=== PATIENT | female | born 1980 | race Caucasian/White ===

== ENCOUNTER 2021-04-11 08:20 | Outpatient (REF) | payer MEDICARE, MEDICAID, SELFPAY ==
[2021-04-11 11:17] LABS: MANUAL DIFF FLAG NO
[2021-04-11 11:28] LABS: Basophils Absolute Auto 0.1 X10*3/uL (0.0-0.2); Basophils Percent Auto 0.5 % (0-2); Eosinophils Absolute Auto 0.3 X10*3/uL (0.0-0.4); Eosinophils Percent Auto 2.9 % (0-4); Hematocrit 41.6 % (37.0-47.0); Hemoglobin 13.9 g/dl (12.0-16.0); Imm Gran Abs Auto 0.03 X10*3/uL (0.00-0.03); Imm Gran Pct Auto 0.3 % (0.0-0.4); Lymphocytes Absolute Auto 2.6 X10*3/uL (1.2-4.9); Lymphocytes Percent Auto 25.3 % (20-40); Mean Corpuscular HGB Conc 33.4 g/dl (31.0-35.0); Mean Corpuscular Hemoglobin 29.9 pg (27.0-33.0); Mean Corpuscular Volume 89.5 fL (80.0-98.0); Mean Platelet Volume 11.4 fL (9.4-12.3); Monocytes Absolute Auto 0.7 X10*3/uL (0.1-1.2); Monocytes Percent Auto 6.6 % (2-11); Neutrophils Absolute Auto 6.5 x10*3/uL (2.0-8.3); Neutrophils Percent Auto 64.4 % (45-73); Platelet Count 300 X10*3/uL (160-400); Red Blood Count 4.65 X10*6/uL (4.20-5.50); Red Cell Distribution Width 12.5 % (11.0-16.0); White Blood Count 10.1 X10*3/uL (4.8-10.8)
[2021-04-11 11:45] LABS: Alanine Aminotransferase 18 U/L (0-31); Albumin Level 4.4 g/dL (3.5-5.0); Alkaline Phosphatase 90 U/L (39-117); Anion Gap 13 (12-20); Aspartate Amino Transferase 19 U/L (5-31); Bilirubin Total 0.5 mg/dL (0.0-1.0); Blood Urea Nitrogen 8 mg/dL (9-16); Calcium 9.5 mg/dL (8.4-10.2); Carbon Dioxide 29 mmol/L (22-29); Chloride 104 mmol/L (96-108); Cholesterol 229 mg/dL; Estimated Glomerular Filt Rate > 60; Glucose Fasting 97 mg/dL (60-99); HDL Cholesterol 55 mg/dL; LDL Cholesterol Calculated 146 mg/dl; Potassium 3.9 mmol/L (3.3-5.1); Sodium 142 mmol/L (135-145); Total Protein 7.1 g/dL (6.5-8.0); Triglycerides 141 mg/dL
[2021-04-11 11:51] LABS: Appearance Urine CLOUDY; Glucose Urine UA NEG (NEG); Leukocyte Esterase Urine NEG (NEG); Nitrite Urine NEG (NEG); PH 6.5 (5.0-8.0); UACC Culture Trigger NO; Urine Blood 3+ (NEG); Urine Ketones NEG (NEG); Urine Protein TRACE MG/DL (NEG-TRACE)
[2021-04-11 11:54] LABS: Color Urine RED
[2021-04-11 12:01] LABS: RBC Urine TNTC /HPF (0); Squamous Epithelial Cell Urine 2+ /LPF; WBC Urine 0 /HPF (0-4)
[2021-04-11 12:07] LABS: TSH reflex Free T4 2.45 uIU/mL (0.32-4.0)
== END 2021-04-11 08:21 | disposition home or self-care (01) ==
LOC: HO.HMGCLDS 08:20
PROVIDERS: PCP Nurse Practitioner Family; Visit Provider Nurse Practitioner Family
DX: I10 Essential (primary) hypertension (principal); E78.5 Hyperlipidemia, unspecified
CPT/HCPCS: 36415; 80053; 80061; 81001; 84443; 85025

== ENCOUNTER 2021-05-03 08:58 | Outpatient (REF) | payer MEDICARE, MEDICAID, SELFPAY ==
--- NOTE | ~2021-05-03 | US_ITS ---
EXAMINATION: US ABDOMEN LIMITED CLINICAL INFORMATION: Soft tissue disorder. Anterior abdominal wall COMPARISON: None TECHNIQUE: Real-time imaging of the right and left lateral abdominal areas. FINDINGS: Area of interest in the anterior abdominal wall scanned, revealing no gross abnormalities, no loculated the fluid, no ultrasound evidence of a mass. No hernia found. No adenopathy. US/US abdomen limited IMPRESSION: Unremarkable ultrasound. If patient remain symptomatic may consider correlation with follow-up contrast enhanced cross-sectional imaging CT scan or MRI..
== END 2021-05-03 08:59 | disposition home or self-care (01) ==
LOC: HO.HMGCX 08:58
PROVIDERS: PCP Nurse Practitioner Family; Visit Provider Nurse Practitioner Family
DX: M79.9 Soft tissue disorder, unspecified (principal)
CPT/HCPCS: 76705

== ENCOUNTER 2021-06-22 09:02 | Outpatient (REF) | payer MEDICARE, MEDICAID, SELFPAY ==
[2021-06-22 11:31] LABS: Appearance Urine HAZY; Color Urine YELLOW; Glucose Urine UA NEG (NEG); Leukocyte Esterase Urine NEG (NEG); Nitrite Urine NEG (NEG); Specific Gravity - Urine >= 1.030 (1.005-1.025); UACC Culture Trigger NO; Urine Blood 1+ (NEG); Urine Ketones NEG (NEG); Urine Protein NEG (NEG-TRACE)
[2021-06-22 11:35] LABS: Cholesterol 132 mg/dL; HDL Cholesterol 47 mg/dL; LDL Cholesterol Calculated 60 mg/dl; Triglycerides 125 mg/dL
[2021-06-22 11:40] LABS: Bacteria Urine 4+ /LPF; Calcium Oxalate Crystals Urine TRACE /LPF; Squamous Epithelial Cell Urine 3+ /LPF
== END 2021-06-22 09:03 | disposition home or self-care (01) ==
LOC: HO.HMGCLDS 09:02
PROVIDERS: Visit Provider Nurse Practitioner Family
DX: E78.5 Hyperlipidemia, unspecified (principal); I10 Essential (primary) hypertension
CPT/HCPCS: 36415; 80061; 81001

== ENCOUNTER 2021-06-25 10:51 | Outpatient (REF) | payer MEDICARE, MEDICAID, SELFPAY ==
--- NOTE | ~2021-06-25 | CT_ITS ---
EXAMINATION: CT ABDOMEN AND PELVIS WITH CONTRAST CLINICAL INFORMATION: Pelvic and perineal pain. COMPARISON: No similar priors. TECHNIQUE: Multidetector volumetric images were obtained from the superior aspect of the liver through the pubic symphysis following administration 85 mL of Omnipaque 350 intravenous contrast. Sagittal and coronal reformatted images were obtained on the technologist's workstation. Oral contrast: No. This CT examination was performed using dose optimization techniques as appropriate, variously including the following: *Automated exposure control *Adjustment of mA and/or kV according to patient size (this includes techniques or standardized protocols for targeted exams where dose is matched to indication/reason for exam; i.e. extremities or head) *Use of iterative reconstruction technique DLP: 549 mGy-cm FINDINGS: LUNG BASES: The visualized lung bases are unremarkable. LIVER, GALLBLADDER, AND BILIARY TREE: There are a few too small to characterize liver lesions, for instance in the left hepatic lobe (3:12) and right hepatic lobe (3:18) which statistically are likely to represent simple cysts. There is focal fatty infiltration adjacent to the falciform ligament. Otherwise, the liver is normal in size, shape and attenuation. Normal gallbladder. No biliary ductal dilatation. PANCREAS: No focal abnormalities. The main pancreatic duct is nondilated. No peripancreatic free fluid nor fat stranding. SPLEEN: Unremarkable. ADRENAL GLANDS: Unremarkable. KIDNEYS AND URETERS: The kidneys are normal in size, shape, and attenuation. No hydronephrosis, hydroureter, or calculi seen. No perinephric stranding. BLADDER: Unremarkable. GASTROINTESTINAL TRACT: The stomach and the small bowel are nondilated. Normal appendix. Mild diverticulosis. No active inflammatory bowel changes or evidence of bowel obstruction. ABDOMINAL WALL: No significant hernia is appreciated. LYMPH NODES: No lymphadenopathy by size criteria. VASCULAR: Atherosclerotic disease. The abdominal aorta is of normal diameter. PELVIC VISCERA: There is an approximately 3.2 cm anterior myometrial mass which statistically is likely to represent an intramural fibroid. There is a 1.7 cm corpus luteal cyst in the right ovary. Trace amount of free fluid layering the pelvis is likely physiologic. OSSEOUS STRUCTURES: No acute or aggressive osseous abnormalities. Thoracolumbar spondylosis. CT/CT abdomen pelvis w con IMPRESSION: Mild diverticulosis without evidence of acute diverticulitis. Uterine fibroid.
[2021-06-25] MEDS: iohexoL 350 MG/ML 100 ML INFUS..BTL IV (11:28)
== END 2021-06-25 10:52 | disposition home or self-care (01) ==
LOC: HO.CT 10:51
PROVIDERS: PCP Nurse Practitioner Family; Visit Provider Nurse Practitioner Family
DX: R10.2 Pelvic and perineal pain (principal); R10.31 Right lower quadrant pain
CPT/HCPCS: 74177; Q9967

== ENCOUNTER 2021-08-28 13:56 | Outpatient (REF) | payer MEDICARE, MEDICAID, SELFPAY ==
--- NOTE | ~2021-08-28 | US_ITS ---
EXAMINATION: US THYROID CLINICAL INFORMATION: Nontoxic single thyroid nodule. COMPARISON: None TECHNIQUE: Linear transducer grayscale and color Doppler examination with attention to the region of the thyroid. FINDINGS: SIZE: Measurements of the thyroid lobes and nodules are given in sagittal, anteroposterior and transverse dimensions respectively. Right Thyroid Lobe: 4.7 x 1.6 x 1.1 cm, volume 4.4 mL. Parenchyma: The gland echotexture is homogeneous. Thyroid vascularity is normal. Left Thyroid Lobe: 4.2 x 0.96 x 1.3 cm, volume 2.8 mL. Parenchyma: The gland echotexture is homogeneous. Thyroid vascularity is normal. Isthmus: 0.29 cm in maximum AP dimension. Estimated total number of nodules greater than or equal to 1 cm: 0. Technical Support Agent nodules are described as follows: 1. Location: Right superior. Size: 0.79 x 0.61 x 0.70 cm, volume 0.18 mL. Nodule characteristics: Composition: Cystic(0). ACR TI-RADS total points: 0 ACR TI-RADS category: 1 2. Location: Left mid. Size: 0.91 x 0.46 x 0.80 cm, volume 0.17 mL. Nodule characteristics: Composition: Mixed cystic and solid (1). Echogenicity: Very hypoechoic (3). Shape: Not taller than wide (0). Margins: Smooth (0). Echogenic Foci: None (0). ACR TI-RADS total points: 4 ACR TI-RADS category: 4 NODES: No lymphadenopathy is seen in the tissue surrounding the thyroid gland. US/US thyroid IMPRESSION: Small bilateral thyroid nodules. These do not meet TI RADS criteria for fine-needle aspiration or ultrasound follow-up. ACR TI-RADS RECOMMENDATION REFERENCE: Ultrasound-guided fine-needle aspiration, followup ultrasound, no further follow up. * TR1 (0 point) and TR 2 (2 points): No FNA or follow up * TR3 (3 points): FNA if more than or equal to 2.5 cm in maximum dimension, followup ultrasound in 1, 3 and 5 years if 1.5 to 2.4 cm in maximum dimension. * TR4 (4-6 points): FNA if more than or equal to 1.5 cm in maximum dimension, followup ultrasound in 1, 2, 3 and 5 years if 1 to 1.4 cm in maximum dimension. * TR5 (more than or equal to 7 points): FNA if more than or equal to 1 cm in maximum dimension, followup ultrasound every year for 5 years if 0.5 to 0.9 cm in maximum dimension. * TR3, TR4 or TR5 nodules that are below the size threshold for follow up receive no follow up.
== END 2021-08-28 13:57 | disposition home or self-care (01) ==
LOC: HO.HMGCX 13:56
PROVIDERS: Visit Provider Nurse Practitioner Family
DX: E04.1 Nontoxic single thyroid nodule (principal)
CPT/HCPCS: 76536

== ENCOUNTER → 2021-09-25 13:44 | Outpatient (REF) | payer MEDICARE, MEDICAID, SELFPAY ==
--- NOTE | 2021-09-25 13:52 | CA_ITS ---
Transthoracic Echocardiogram Patient (Last, First, Middle): Janeth Rachel, Gender: Female Date of : 1980 Age: 40 Procedure Date: 09/25/2021 Procedure Type: Transthoracic Echocardiogram Location: OP Height: 165.1 cm Weight: 91.17 kg BSA: 1.98 m2 Heart Rate: bpm BP: 130 / 80 mmHg Marketing Database Coordinator: SB Referring MD: Andrew Canada [facility] [employer] Chief: Deshawn Soto MD Symptoms: R01.1 - Cardiac murmur, unspecified Study Quality: Adequate ECG Rhythm: Sinus Conclusions: - Essentially normal study Findings Left Ventricle Normal left ventricular size, thickness, and systolic function. The visually estimated ejection fraction is between 60-65%. Spectral Doppler is indicative of a normal filling pattern. Right Ventricle Normal right ventricular cavity size and systolic function. Atria Both atria are normal in size. There is no evidence of interatrial shunt. Aortic Valve Normal aortic valve structure and function. There is no aortic valve stenosis. There is no aortic valve regurgitation. Mitral Valve Normal mitral valve structure and function. There is trace mitral valve regurgitation. There is no mitral valve stenosis. Pulmonic Valve The pulmonic valve is likely normal. Tricuspid Valve Normal tricuspid valve structure. Tricuspid regurgitation envelope is inadequate for calculation of right ventricular systolic pressure. Great Vessels All visible segments of the aorta are normal in size. The pulmonary artery was not well visualized. Venous The inferior vena cava is normal in size and collapses greater than 50% with inspiration. Pericardium/Pleural There is no evidence of pericardial effusion. Prior Study Comparison No prior study available for comparison. Measurements 2D Linear Measurements IVSd: 0.53 0.6-0.9/0.6-1.0 cm LVIDd: 5.62 3.9-5.3/4.2-5.9 cm LVIDd Index: 2.84 2.4-3.2/2.2-3.1 cm/m2 LVIDs: 3.92 2.0-3.6 cm LVPWd: 0.60 0.7-1.1 cm LA Diam: 3.80 2.7-3.8/3.0-4.0 cm LAIDs Index: 1.92 1.5-2.3 cm/m2 LV Mass: 135.96 67-162/88-224 g LV Mass Index: 68.66 43-95/49-115 g/m2 LVOT Diam: 1.90 3.0+(-)1.3 cm Mitral Valve MV Pk E: 0.92 MV PK A: 0.88 MV Decel Time: 187.00 E/A: 1.00 E'Lateral: 14.00 E'Medial: 7.62 E/E' Med: 12.10 E/E' Lat: 6.60 PHT: 55.00 MVA PHT: 4.00 Decel [place]: 4.91 Aortic Valve AoV Pk August: 1.36 AoV Mn August: 1.02 AoV VTI: 0.27 AoV Pk Grad: 7.00 Aov Mn Grad: 4.00 ADELSO Cont.VTI: 2.64 LVOT LVOT Pk August: 1.26 LVOT Mn August: 0.90 LVOT VTI: 0.25 LVOT Pk Grad: 6.00 LVOT Mn Grad: 4.00 LVOT Diam: 1.90 LVOT Area: 2.84 Diastolic Function MV Pk E: 0.92 MV Pk A: 0.88 E/A: 1.00 E'Medial: 7.62 E/E' Med: 12.10 E' Laterial: 14.00 E/E' Lat: 6.60 Right Ventricle TAPSE (mm): 20.30 TVS' August: 12.70 Tricuspid Valve RA Press: 3.00 Great Vessels Aorta Sinus of Valsalva: 2.60 2.0-3.[address] [place]: 2.34 1.7-3.4 cm Ao Asc: 2.80 2.1-3.4 cm Pulmonary Valve PV Pk August: 1.13 Peak PV Grad: 5.00 Updated in Other Vendor System with Status of Final Deshawn Soto MD electronically signed on 09/25/2021 6:16:34 PM with status of Final
== END ==
LOC: HO.CARD 13:44
PROVIDERS: Visit Provider Nurse Practitioner Family
DX: R01.1 Cardiac murmur, unspecified (principal)
CPT/HCPCS: 93306

== ENCOUNTER 2023-06-03 12:58 | Outpatient (AMB) | payer MEDICARE, MEDICAID, SELFPAY ==
--- NOTE | 2023-06-03 13:09 | MHC.PC.OV ---
Vital Signs 06/03/23 13:12 Height 5 ft 6 in Weight 205 lb BMI 33.1 BP 120/76 Blood Pressure Location Lt brachial Position Sitting Pulse 79 Pulse Source Pulse Oximeter Pulse Oximetry (%) 98 Oxygen Delivery Method Room Air Intake Visit Reasons: HTN Follow up on meds Intake Note: Patient here for HTN/Choles F/U. Allergies PYRAZOLE Allergy (Unknown, Uncoded 06/03/23 13:13) Unknown Salicylates Allergy (Unknown, Uncoded 06/03/23 13:13) Unknown Medication List - Last Reconciled 06/03/23 by Andrew Canada, ACCOUNT CONSULTANT- albuterol sulfate 90 mcg/actuation (Ventolin HFA) 1 inh inhalation QID PRN 30 days atorvastatin 10 mg PO BEDTIME 90 days diphenhydramine HCl 50 mg PO BEDTIME methadone 20 mg PO DAILY multivitamin 1 tab PO DAILY Tobacco use date assessed: 06/03/23 Dental Screening Dental Screen Date: 06/03/23 Did you have a dental visit in the last 12 months?: No Did you have a dental problem in the last 6 months where you did not have access to dental care?: No Was dental information given to patient?: Patient has dentist HPI HTN Follow up on meds HPI Details HTN: Blood pressure is stable. Pt is not currently on any meds for blood pressure. Denies chest pain, shortness of breath, headache, dizziness, and blurred vision. Will order labs. reports doing well overal [facility] Social History Housing: [place] Patient Tobacco Use Status: Former Tobacco user Years Smoked: 2 years ago e-Cigarette/Vaping Use: Currently Using Second Hand Smoke Exposure: No service: No Current occupational status: disabled Cognitive needs: No Hearing needs: No Vision needs: No Questionnaire PHQ-9 Over the last 2 weeks, how often have you been bothered by any of the following problems? 1. Little interest or pleasure in doing things: not at all 2. Feeling down, depressed, or hopeless: not at all 3. Trouble falling or staying asleep, or sleeping too much: several days 4. Feeling tired or having little energy: not at all 5. Poor appetite or overeating: not at all 6. Feeling bad about yourself - or that you are a failure or have let yourself or your family down: not at all 7. Trouble concentrating on things, such as reading the newspaper or watching television: not at all 8. Moving or speaking so slowly that other people could have noticed. Or the opposite - being so fidgety or restless that you have been moving around a lot more than usual: not at all 9. Thoughts that you would be better off or of hurting yourself in some way: not at all Total score: 1 Depression Screening Interpretation: Negative Depression Screening Done: Yes 43654 - PHQ-9 Billing: Yes Source: Developed by Drs. Kumar Gusman, Estefania Aragon, Hudson Ha and colleagues, with an educational bessie from [employer]. Thrive Questionnaire Date Thrive assessed: 06/03/23 I am a: Patient What is your living situation today?: I have a steady place to live Within the past 12 months, did the food you bought not last and you didn't have the money to get more?: Never true Within the past 12 months, did you worry whether your food would run out before you got money to buy more?: Never true Do you have trouble paying for medicines?: No Do you have trouble getting transportation to medical appointments?: No Do you have trouble paying your heating and electricity bill?: No Do you have trouble taking care of your child, family member or friend?: No Do you have trouble with day-to-day activities such as bathing, preparing meals, shopping, managing finances, etc.?: No Are you currently unemployed and looking for a job?: No Are you interested in more education?: No AUDIT C Alcohol Use Questionnaire (AUDIT-C) 1. How often do you have a drink containing alcohol?: Never 3. How often do you have six or more drinks on one occasion?: Never Total Score: 0 Score Reviewed/Action Taken: No MATT-7 AMB Questionnaire MATT-7 Date MATT - 7 assessed: 06/03/23 Feeling nervous, anxious, or on edge: 0 = Not at all Not being able to stop or control worryin = Not at all Worrying too much about different things: 0 = Not at all Trouble relaxin = Not at all Being so restless that it is hard to sit still: 0 = Not at all Becoming easily annoyed or irritable: 0 = Not at all Feeling afraid as if something awful might happen: 0 = Not at all Total MATT-7 score (0-4 normal; 5-9 mild; 10-14 moderate; 15-21 severe): 0 Source: Developed by Drs. Kumar Gusman, Estefania Aragon, Hudson Ha and colleagues, with an educational bessie from [employer]. MATT-7 Assessment Billing MATT-7 Assessment Tool: MATT-7 Assessment 55458 Review of Systems Const Reports as per HPI Physical exam (Primary Care) Vital Signs: Last Vital Signs Pulse 79 06/03/23 13:12 BP 120/76 06/03/23 13:12 Pulse Ox 98 06/03/23 13:12 Oxygen Delivery Method Room Air 06/03/23 13:12 BMI result Body Mass Index 33.1 Tobacco/Smoking Status: Tobacco use Status Tobacco use date assessed 06/03/23 06/03/23 13:18 Patient Tobacco Use Status Former Tobacco user 06/03/23 13:18 e-Cigarette/Vaping Use Currently Using 06/03/23 13:18 PHQ-9: PHQ-9 Score PHQ-9: Total score 1 06/03/23 13:22 Depression Screening Interpretation: Negative Thrive Assessment: Date of Thrive Assessment Date Thrive assessed 06/03/23 06/03/23 13:18 Const General: cooperative Nutritional Appearance: obese Orientation/consciousness: patient oriented x3 Resp Effort & Inspection: normal respiratory effort Auscultation: clear to auscultation bilaterally Cardio Rate: regular rate Rhythm: regular rhythm Heart sounds: S1 normal heart sound present and S2 normal heart sound present Neuro General: patient oriented x3 Extrem Right lower extremity: no edema Left lower extremity: no edema Psych Appearance: grossly normal Mental Status: mental status grossly normal Speech and movement: Normal speech and movement present Affect: normal affect Attitude: cooperative Thought process: Normal thought process present Thought content: Normal thought content present Insight: Good insight present (Psych) Judgement: Good judgement present (Psych) Assessment and Plan Assessment & Plan (1) HTN (hypertension): Code(s): I10 - Essential (primary) hypertension Plan: Labs ordered (2) Vitamin D deficiency: Code(s): E55.9 - Vitamin D deficiency, unspecified Plan The patient agreed to the use of a director biomedical engineering for this encounter. Scribed for OSITO Coello by Paradise Paulino, director biomedical engineering, on 06/03/2023 at 13:25 EST. Orders: Orders Complete Blood Count Auto Diff Today I10 - Essential (primary) hypertension UA CC w/rflx Micro + Cult Today I10 - Essential (primary) hypertension Comprehensive [place]. Panel Fast Today I10 - Essential (primary) hypertension TSH reflex Free T4 Today I10 - Essential (primary) hypertension Lipid Panel Today I10 - Essential (primary) hypertension Vitamin D 25-OH Total Today E55.9 - Vitamin D deficiency, unspecified Medications: New multivitamin 1 tab PO DAILY 90 tabs 3RF Coding Level of Care Code Est Pt Level 3 (72406) Diagnoses HTN (hypertension) I10 Vitamin D deficiency E55.9 Additional Codes MATT-7 Assessment Billing - MATT-7 Assessment Tool: MATT-7 Assessment 92275 ([id number])
[2023-06-03 13:12] VITALS: BP 120/76; PULSE 79; O2SAT 98; BMI 33.1
== END 2023-06-03 15:11 | disposition home or self-care (01) ==
PROVIDERS: PCP Nurse Practitioner Family; Visit Provider Nurse Practitioner Family
DX: I10 Essential (primary) hypertension (principal); E55.9 Vitamin D deficiency, unspecified
CPT/HCPCS: 99213

== ENCOUNTER 2024-02-27 07:27 | Outpatient (REF) | payer MEDICARE, MEDICAID, SELFPAY ==
[2024-02-27 10:15] LABS: Appearance Urine Cloudy; Color Urine Yellow; Glucose Urine UA Negative (Negative); Leukocyte Esterase Urine Negative (Negative); Nitrite Urine Negative (Negative); Specific Gravity - Urine 1.015 (1.005-1.025); Urine Blood Negative (Negative); Urine Ketones Negative (Negative); Urine Protein Negative (Neg-Trace)
[2024-02-27 10:15] LABS: MANUAL DIFF FLAG NO
[2024-02-27 10:25] LABS: Basophils Percent Auto 0.5 % (0-2); Eosinophils Absolute Auto 0.2 X10*3/uL (0.0-0.4); Eosinophils Percent Auto 2.3 % (0-4); Hemoglobin 14.5 g/dl (12.0-16.0); Imm Gran Abs Auto 0.01 X10*3/uL (0.00-0.03); Imm Gran Pct Auto 0.1 % (0.0-0.4); Lymphocytes Absolute Auto 2.5 X10*3/uL (1.2-4.9); Lymphocytes Percent Auto 28.8 % (20-40); Mean Corpuscular HGB Conc 34.5 g/dl (31.0-35.0); Mean Corpuscular Hemoglobin 30.4 pg (27.0-33.0); Mean Corpuscular Volume 88.1 fL (80.0-98.0); Mean Platelet Volume 11.6 fL (9.4-12.3); Monocytes Absolute Auto 0.7 X10*3/uL (0.1-1.2); Neutrophils Absolute Auto 5.3 x10*3/uL (2.0-8.3); Neutrophils Percent Auto 60.3 % (45-73); Platelet Count 277 X10*3/uL (160-400); Red Blood Count 4.77 X10*6/uL (4.20-5.50); Red Cell Distribution Width 12.2 % (11.0-16.0); White Blood Count 8.7 X10*3/uL (4.8-10.8)
[2024-02-27 10:51] LABS: Alanine Aminotransferase 15 U/L (0-31); Alkaline Phosphatase 73 U/L (39-117); Anion Gap 10 (12-20); Aspartate Amino Transferase 18 U/L (5-31); Bilirubin Total 0.7 mg/dL (0.0-1.0); Blood Urea Nitrogen 10 mg/dL (9-16); Calcium 9.5 mg/dL (8.4-10.2); Carbon Dioxide 28 mmol/L (22-29); Chloride 107 mmol/L (96-108); Cholesterol 121 mg/dL (<200); Estimated Glomerular Filt Rate > 60; Glucose Fasting 95 mg/dL (60-99); HDL Cholesterol 51 mg/dL (>40); LDL Cholesterol Calculated 56 mg/dL (<100); Sodium 141 mmol/L (135-145); Total Protein 6.5 g/dL (6.5-8.0); Triglycerides 73 mg/dL (<150)
== END 2024-02-27 07:28 | disposition home or self-care (01) ==
LOC: HO.HMGCLDS 07:27
PROVIDERS: PCP Nurse Practitioner Family; Visit Provider Nurse Practitioner Family
DX: I10 Essential (primary) hypertension (principal); E55.9 Vitamin D deficiency, unspecified
CPT/HCPCS: 36415; 80053; 80061; 81003; 82306; 84443; 85025

== ENCOUNTER 2024-09-20 15:11 | Outpatient (AMB) | payer MEDICARE, MEDICAID, SELFPAY ==
[2024-09-20 15:17] VITALS: BP 120/76; PULSE 69; O2SAT 98; BMI 29.7
--- NOTE | 2024-09-20 15:17 | MHC.PC.OV ---
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 Accompanied by: Self / Same As Patient Allergies PYRAZOLE Allergy (Unknown, Uncoded 09/20/24 15:17) Unknown Salicylates Allergy (Unknown, Uncoded 09/20/24 15:17) Unknown Tobacco use date assessed: 09/20/24 Dental Screening Dental Screen Date: 09/20/24 Did you have a dental visit in the last 12 months?: Yes Did you have a dental problem in the last 6 months where you did not have access to dental care?: No Was dental information given to patient?: Patient has dentist HPI Annual PE Pt wants to come in spring HPI Details Chief Complaint The patient is due for a mammogram and requires a referral for a new WASH CREW PERSON due to her previous WASH CREW PERSON retiring. History of Present Illness The patient is a 43-year-old female presenting for a wellness visit. She is aware of her mammogram due and has not undergone a Pap smear since 2020, requiring a new referral following the alf of her previous coordinate measuring machine operator. The patient's mood disorder was previously managed with gabapentin. She regularly attends a methadone clinic for ongoing management of opioid dependence. She denies any significant symptoms related to chest, respiratory, gastrointestinal systems, or any violent thoughts. Social History - Regular attendance at a methadone clinic. - No current therapist for mood disorder management. - Previous coordinate measuring machine operator retired, prompting need for a new referral. Health Maintenance - Mammogram due. - Pap smear overdue with a referral placed for a new coordinate measuring machine operator. Review of Systems - Respiratory: Denies shortness of breath. - Cardiovascular: Denies chest pain. - Gastrointestinal: Denies blood in stool, constipation, diarrhea. - Neurological/Psychiatric: Denies suicidal and homicidal ideation. Physical Exam General: Cooperative, healthy appearing, comfortable, no acute distress and well developed Orientation: Patient oriented x3 Limitations: No limitations Head: Normal to inspection Ears: Hearing grossly normal bilaterally Nose: Normal external nose present Face and sinus: Normal facial exam Eyes: Appearance normal, both eyes and all related structures Neck: Normal visual inspection and Yes full ROM Respiratory: Normal respiratory effort and able to speak in complete sentences. Clear to auscultation bilaterally Cardiovascular: Regular rate and rhythm. Normal S1 and S2 GI: Normal to inspection. Soft to palpation and nontender Skin: No rashes or lesions noted Neuro: Patient oriented x3 Extremities: Normal to inspection Results - Mammogram: Ordered. Plan A mammogram has been ordered as it is due. The patient will be referred to a new coordinate measuring machine operator for an overdue Pap smear, providing continuity in her preventive care. No changes were suggested regarding her former gabapentin use for mood stabilization, as there was no current therapy discussed. Continued attendance at her methadone clinic appears satisfactory without further intervention at this time. Discussion Notes During this visit, I discussed the patient?s health maintenance needs, emphasizing the due mammogram and necessity for a new coordinate measuring machine operator because of the overdue Pap smear since her previous provider?s alf. We addressed her history of mood disorder, previously managed with gabapentin, without current therapy involvement. I reviewed the importance of her regular visits to the methadone clinic for opioid dependence. The patient was informed about the orders for the mammogram and referral for gynecological services. Patient Instructions - Schedule your mammogram as soon as possible. - Follow up with the new coordinate measuring machine operator for the overdue Pap smear. - Continue regular visits to the methadone clinic. - Report any new symptoms or changes in health promptly. [facility] Surgical History No pertinent past surgical history Social History Housing: [place] Patient Tobacco Use Status: Former Tobacco user Years Smoked: 2 years ago e-Cigarette/Vaping Use: Currently Using Second Hand Smoke Exposure: No service: No Current occupational status: disabled Cognitive needs: No Hearing needs: No Vision needs: No Questionnaire PHQ-9 Over the last 2 weeks, how often have you been bothered by any of the following problems? 1. Little interest or pleasure in doing things: not at all 2. Feeling down, depressed, or hopeless: not at all 3. Trouble falling or staying asleep, or sleeping too much: several days 4. Feeling tired or having little energy: not at all 5. Poor appetite or overeating: not at all 6. Feeling bad about yourself - or that you are a failure or have let yourself or your family down: not at all 7. Trouble concentrating on things, such as reading the newspaper or watching television: not at all 8. Moving or speaking so slowly that other people could have noticed. Or the opposite - being so fidgety or restless that you have been moving around a lot more than usual: not at all 9. Thoughts that you would be better off or of hurting yourself in some way: not at all Total score: 1 Depression Screening Interpretation: Negative Depression Screening Done: Yes 13894 - PHQ-9 Billing: Yes Source: Developed by Drs. Kumar Gusman, Estefania Aragon, Hudson Ha and colleagues, with an educational bessie from [employer]. Thrive Questionnaire Date Thrive assessed: 09/20/24 I am a: Patient What is your living situation today?: I have a steady place to live Within the past 12 months, did the food you bought not last and you didn't have the money to get more?: Never true Within the past 12 months, did you worry whether your food would run out before you got money to buy more?: Never true Do you have trouble paying for medicines?: No Do you have trouble getting transportation to medical appointments?: No Do you have trouble paying your heating and electricity bill?: No Do you have trouble taking care of your child, family member or friend?: No Do you have trouble with day-to-day activities such as bathing, preparing meals, shopping, managing finances, etc.?: No Are you currently unemployed and looking for a job?: No Are you interested in more education?: No Please select the resources that you would like help with: None Currently or been in a relationship where the following occur: I choose not to answer THRIVE Score: 0 AUDIT C Alcohol Use Questionnaire (AUDIT-C) 1. How often do you have a drink containing alcohol?: Never 3. How often do you have six or more drinks on one occasion?: Never Total Score: 0 Score Reviewed/Action Taken: Yes MATT-7 AMB Questionnaire MATT-7 Date MATT - 7 assessed: 09/20/24 Feeling nervous, anxious, or on edge: 1 = Several days Not being able to stop or control worryin = Several days Worrying too much about different things: 1 = Several days Trouble relaxin = Several days Being so restless that it is hard to sit still: 0 = Not at all Becoming easily annoyed or irritable: 0 = Not at all Feeling afraid as if something awful might happen: 1 = Several days Total MATT-7 score (0-4 normal; 5-9 mild; 10-14 moderate; 15-21 severe): 5 Source: Developed by Drs. Kumar Gusman, Estefania Aragon, Hudson Ha and colleagues, with an educational bessie from [employer]. MATT-7 Assessment Billing MATT-7 Assessment Tool: MATT-7 Assessment 76552 Physical exam (Primary Care) Vital Signs: Last Vital Signs Pulse 69 09/20/24 15:17 Pulse Ox 98 09/20/24 15:17 Oxygen Delivery Method Room Air 09/20/24 15:17 BMI result Body Mass Index 29.7 Tobacco/Smoking Status: Tobacco use Status Tobacco use date assessed 09/20/24 09/20/24 15:23 Patient Tobacco Use Status Former Tobacco user 09/20/24 15:17 e-Cigarette/Vaping Use Currently Using 09/20/24 15:17 PHQ-9: PHQ-9 Score PHQ-9: Total score 1 09/20/24 15:55 Depression Screening Interpretation: Negative Thrive Assessment: Date of Thrive Assessment Date Thrive assessed 09/20/24 09/20/24 15:23 Currently or been in a relationship where the following occur: I choose not to answer Coding Level of Care Code Est Pt Prev Care 40-64y(56465) Diagnoses Encounter for routine adult physical exam with abnormal findings Screening for cervical cancer Z12.4 Additional Codes MATT-7 Assessment Billing - MATT-7 Assessment Tool: MATT-7 Assessment 27610 ([id number]) PHQ-9 - 94182 - PHQ-9 Billing: Yes ([id number]) Assessment & Plan Assessment & Plan (1) Encounter for routine adult physical exam with abnormal findings: Code(s): Z00. - Encounter for general adult medical examination with abnormal findings Category: Medical (2) Screening for cervical cancer: Code(s): Z12.4 - Encounter for screening for malignant neoplasm of cervix Category: Medical Plan . Orders: Orders Comprehensive [place]. Panel Fast Today Z. - Encounter for general adult medical examination with abnormal findings TSH reflex Free T4 Today Z00.01 - Encounter for general adult medical examination with abnormal findings UA CC w/rflx Micro + Cult Today Z00.01 - Encounter for general adult medical examination with abnormal findings Lipid Panel Today Z00.01 - Encounter for general adult medical examination with abnormal findings MM screening mammo BI Today Z12.31 - Encounter for screening mammogram for malignant neoplasm of breast Complete Blood Count Auto Diff Today Z00.01 - Encounter for general adult medical examination with abnormal findings Referrals T[employer] MILK RECEIVER Referral Z12.4 - Encounter for screening for malignant neoplasm of cervix Medications: New gabapentin 100 mg PO BID 30 days 60 caps 3RF
== END 2024-09-20 16:00 | disposition home or self-care (01) ==
LOC: HO.HMCC 15:11
PROVIDERS: PCP Nurse Practitioner Family; Visit Provider Nurse Practitioner Family
DX: Z00.00 Encounter for general adult medical examination without abnormal findings (principal)

== ENCOUNTER → 2024-09-20 15:11 | Outpatient (BNVA) | payer MEDICARE, MEDICAID, SELFPAY | PROVIDERS: PCP Nurse Practitioner Family; Visit Provider Nurse Practitioner Family | DX: Z00.01 Encounter for general adult medical examination with abnormal findings (principal) | CPT/HCPCS: 96127; 99396 ==

== ENCOUNTER 2024-11-12 12:53 | Outpatient (REF) | payer MEDICARE, MEDICAID, SELFPAY | END 2024-11-12 12:54 | disposition home or self-care (01) | LOC: HO.MAMMO 12:53 | PROVIDERS: PCP Nurse Practitioner Family; Visit Provider Nurse Practitioner Family | DX: Z12.31 Encounter for screening mammogram for malignant neoplasm of breast (principal) | CPT/HCPCS: 77063; 77067 ==

== ENCOUNTER → 2024-11-12 13:30 | Outpatient (BNV) | payer MEDICARE, MEDICAID, SELFPAY | PROVIDERS: PCP Nurse Practitioner Family; Visit Provider Internal Medicine | DX: Z12.31 Encounter for screening mammogram for malignant neoplasm of breast (principal) | CPT/HCPCS: 77063; 77067 ==

== ENCOUNTER 2024-12-31 12:53 | Outpatient (REF) | payer MEDICARE, MEDICAID, SELFPAY ==
--- NOTE | ~2024-12-31 | MM_ITS ---
EXAMINATIONS: 1. MM DIAGNOSTIC DIGITAL BREAST TOMOSYNTHESIS, BILATERAL 2. Targeted ultrasound of the right breast 3. Targeted ultrasound of the left breast CLINICAL INFORMATION: Callback from baseline screening for: -Right asymmetry in the medial breast posterior depth on CC view. -Left asymmetry in the medial breast posterior depth on CC view. COMPARISON: November 12, 2024 TECHNIQUE: Digital breast tomosynthesis is performed in full field ML 90 degrees views along with computer-aided detection (CAD). Synthesized 2D images are generated from the tomosynthesis. Spot compression tomosynthesis images were also obtained. FINDINGS: BREAST COMPOSITION: The breasts are heterogeneously dense, which may obscure small masses (ACR BI-RADS breast composition Category c). RIGHT BREAST: Previously described asymmetry in the medial breast posterior depth is pliable but persists on today's spot compression view at about 10.5 cm from the nipple. Probable correlate is located in the lower breast on the MLO view at about 10 cm from the nipple. Targeted ultrasound of the right breast was performed at the location of the mammographic finding. The survey throughout the lower inner quadrant did not reveal suspicious findings. LEFT BREAST: Previously described asymmetry in the medial breast posterior depth is pliable but persists on today's spot compression views at about 10 cm from the nipple. Probable correlate is located in the upper breast on MLO view at about 10 cm from the nipple. Targeted ultrasound of the left breast was performed at the location of the mammographic finding. The survey throughout the upper inner quadrant did not reveal suspicious findings. MM/MM tomosynthesis added view BI IMPRESSION: RIGHT BREAST: Focal asymmetry in the lower inner quadrant posterior depth, without suspicious sonographic correlate. Probably benign. A 6-month follow-up mammogram is recommended. LEFT BREAST: Focal asymmetry in the upper inner quadrant posterior depth, without suspicious sonographic correlate. Probably benign. A 6-month follow-up mammogram is recommended. ASSESSMENT: BI-RADS 3 - Probably benign finding(s) - 6 month follow-up suggested RECOMMENDATION: 6 Month F/U Results were provided to the patient at time of visit by the technologist. This patient's information was entered into a reminder system with a target due date for their next mammogram. Electronically signed by: Rex Salazar MD 12/31/2024 04:22 PM EDT
== END 2024-12-31 12:54 | disposition home or self-care (01) ==
LOC: HO.MAMMO 12:53
PROVIDERS: PCP Nurse Practitioner Family; Visit Provider Nurse Practitioner Family
DX: N64.89 Other specified disorders of breast (principal)
CPT/HCPCS: 76642; 77062; 77066

== ENCOUNTER → 2024-12-31 13:30 | Outpatient (BNV) | payer MEDICARE, MEDICAID, SELFPAY | PROVIDERS: PCP Nurse Practitioner Family; Visit Provider Radiology Body Imaging | DX: R92.8 Other abnormal and inconclusive findings on diagnostic imaging of breast (principal) | CPT/HCPCS: 76642; 77066; G0279 ==

== ENCOUNTER 2025-05-11 06:43 | Outpatient (AMB) | payer MEDICARE, MEDICAID, SELFPAY ==
--- NOTE | 2025-05-11 08:12 | MHC.PC.OV ---
Intake Visit Reasons: ED f/u ENT referral Allergies PYRAZOLE Allergy (Unknown, Uncoded 09/20/24 15:17) Unknown Salicylates Allergy (Unknown, Uncoded 09/20/24 15:17) Unknown Tobacco use date assessed: 09/20/24 Dental Screening Dental Screen Date: 09/20/24 [facility] ED f/u ENT referral HPI Details History of Present Illness The patient is a 44 year old female presenting with right anterior neck discomfort. She reports having this discomfort for years and experiences an odd sensation when turning her head to the right or left. She denies any dysphagia, dyspnea, or chest pain and is tolerating her diet. She recently visited the emergency department for this issue, where an ultrasound was performed and was reportedly negative. A prior thyroid ultrasound in 2021 revealed small nodules that were considered not pertinent. The patient has a history of smoking. Review of Systems - Neck: Reports chronic right anterior discomfort and an odd sensation when turning her head. - Respiratory: Denies dyspnea. - Cardiovascular: Denies chest pain. - Gastrointestinal: Denies dysphagia and reports tolerating her diet. Plan 1. Anterior Neck Discomfort The patient has a history of chronic right anterior neck discomfort. Recent evaluation in the emergency department, including an ultrasound, was negative, and a prior thyroid ultrasound from 2021 showed only small, non-pertinent nodules. There are no associated symptoms of dysphagia or dyspnea. A referral will be placed to an ENT specialist for further evaluation, as requested by the patient. Discussion Notes I discussed the patient's chronic right anterior neck discomfort. I noted that her recent emergency department visit, which included an ultrasound, was reassuringly negative, as were the findings from a prior thyroid ultrasound in 2021 that showed only small nodules. We confirmed the absence of any red flag symptoms such as difficulty swallowing, shortness of breath, or chest pain. As per her request, I will place a referral to an Ear, Nose, and Throat (ENT) specialist for further evaluation. Patient Instructions - We will send a referral for you to see an Ear, Nose, and Throat (ENT) specialist to look into your neck discomfort. [facility] Surgical History No pertinent past surgical history Social History Housing: House Patient Tobacco Use Status: Former Tobacco user Years Smoked: 2 years ago e-Cigarette/Vaping Use: Currently Using Second Hand Smoke Exposure: No service: No Current occupational status: disabled Cognitive needs: No Hearing needs: No Vision needs: No Questionnaire Thrive Questionnaire Date Thrive assessed: 09/20/24 I am a: Patient What is your living situation today?: I have a steady place to live Within the past 12 months, did the food you bought not last and you didn't have the money to get more?: Never true Within the past 12 months, did you worry whether your food would run out before you got money to buy more?: Never true Do you have trouble paying for medicines?: No Do you have trouble getting transportation to medical appointments?: No Do you have trouble paying your heating and electricity bill?: No Do you have trouble taking care of your child, family member or friend?: No Do you have trouble with day-to-day activities such as bathing, preparing meals, shopping, managing finances, etc.?: No Are you currently unemployed and looking for a job?: No Are you interested in more education?: No Currently or been in a relationship where the following occur: I choose not to answer THRIVE Score: 0 AUDIT C Alcohol Use Questionnaire (AUDIT-C) 2. How many drinks containing alcohol do you have on a typical day when you are drinking?: 1 or 2 3. How often do you have six or more drinks on one occasion?: Never Total Score: 0 MATT-7 AMB Questionnaire MATT-7 Date MATT - 7 assessed: 09/20/24 Source: Developed by Drs. Kumar Gusman, Estefania Aragon, Hudson Ha and colleagues, with an educational bessie from [employer]. Physical exam (Primary Care) Tobacco/Smoking Status: Tobacco use Status Tobacco use date assessed 09/20/24 05/05/25 08:48 Patient Tobacco Use Status Former Tobacco user 05/05/25 08:48 e-Cigarette/Vaping Use Currently Using 05/05/25 08:48 Thrive Assessment: Date of Thrive Assessment Date Thrive assessed 09/20/24 05/05/25 08:48 Currently or been in a relationship where the following occur: I choose not to answer Telehealth Telehealth Telehealth Platform: [employer] Location of provider rendering services: practice address Location of patient: address on file Patient Identification confirmed using: Name, : Yes Telehealth method: video Patient verbally consented to treatment: Yes Patient verbally consented to billing insurance company: Yes Patient informed of any privacy concerns related to visit: Yes Minutes spent on Phone/Video with Pt.: 10 Coding Level of Care Code Tele Est Pt Level 3 (54843) Diagnoses Throat discomfort R07.0 Assessment & Plan Assessment & Plan (1) Throat discomfort: Code(s): R07.0 - Pain in throat Category: Medical Plan . Orders: Referrals Ear/Nose/Throat Referral R07.0 - Pain in throat
== END 2025-05-11 09:07 | disposition home or self-care (01) ==
LOC: HO.HMCC 06:44
PROVIDERS: PCP Nurse Practitioner Family; Visit Provider Nurse Practitioner Family
DX: R07.0 Pain in throat (principal)